=== PATIENT | male | born 1945 | race Caucasian/White ===

== ENCOUNTER → 2017-09-10 | Outpatient (CLI) | payer MEDICARE ==
[~2017-09-10] MED LIST: ASPI81EC PO; CEPH500 PO; CYCL10 PO; HYDR-86 PO; HYDR1TAB94 PO; LISHYD2025 PO; LISI20 PO; LISINOPRIL PO; TRAM50 PO; [UNRECOGNIZED DRUG - REMARK]
== END ==
LOC: PLD 10:32 → LAB SHORT 10:32
DX: D48.5 Neoplasm of uncertain behavior of skin (principal)
CPT/HCPCS: 88305

== ENCOUNTER → 2020-09-21 | Outpatient (CLI) | payer MEDICARE ==
[~2020-09-21] MED LIST changes: +TAMS.4ER PO
== END | disposition home or self-care (01) ==
LOC: LAB SHORT 11:33 → PLD 11:33
DX: L81.4 Other melanin hyperpigmentation (principal)
CPT/HCPCS: 88305

== ENCOUNTER 2025-03-28 09:03 | Observation (INO) | payer OTHER ==
[2025-03-28] VITALS (12 sets, daily range): BP systolic 110–150; BP diastolic 47–84
[~2025-03-28] VITALS: Ht 188 cm; Wt 92.6 kg
[2025-03-28 10:27] LABS: Source, Urine Clean Catch
[2025-03-28 10:30] LABS: Bilirubin, Urine Neg (Neg); Color, Urine Yellow (P-Yellow); Glucose Qualitative, Urine Neg (Neg); Ketones, Urine Neg (Neg); Leukocyte Esterase, Urine Neg (Neg); Protein, Urine 1+ (Neg); Specific Gravity, Urine 1.020 (1.003-1.022); Urobilinogen, Urine NORM (Normal)
[2025-03-28 10:39] LABS: Red Blood Cells, Urine 0-2 /hpf (0-2); White Blood Cells, Urine 0-2 /hpf (0-5)
[2025-03-28 10:40] LABS: BASOPHILS ABSOLUTE AUTO 0.05 K/mm3 (0.00-0.23); BASOPHILS PERCENT AUTO 0 % (0-2); EOSINOPHILS ABSOLUTE AUTO 0.01 K/mm3 (0.00-0.68); EOSINOPHILS PERCENT AUTO 0 % (0-6); Hematocrit 40.7 % (37.0-53.0); Hemoglobin 13.8 g/dL (13.5-17.5); IMMATURE GRAN ABSOLUTE AUTO 0.06 K/mm3 (0.00-0.10); IMMATURE GRAN PERCENT AUTO 0 % (0-1); LYMPHOCYTES ABSOLUTE AUTO 1.36 K/mm3 (0.84-5.20); LYMPHOCYTES PERCENT AUTO 8 % (21-46); MONOCYTES ABSOLUTE AUTO 1.39 K/mm3 (0.16-1.47); MONOCYTES PERCENT AUTO 8 % (4-13); Mean Corpuscular HGB Conc 33.9 g/dL (31.5-36.5); Mean Corpuscular Volume 87 fL (80-100); NEUTROPHILS ABSOLUTE AUTO 14.52 K/mm3 (1.96-9.15); NEUTROPHILS PERCENT AUTO 84 % (41-73); NRBC ABSOLUTE 0.00 K/mm3 (0.00-0.02); NRBC Auto 0.0 /100 WBC (0.0-0.2); Platelet Count 219 K/mm3 (150-400); RDW Coefficient Variation 13.3 % (11.7-14.2); RDW Standard Deviation 42.4 fL (35.1-46.3)
[2025-03-28 10:59] LABS: Alanine Aminotransfer (ALT/SGP 28.0 U/L (12-78); Albumin, Blood 3.9 g/dL (3.4-5.0); Albumin/Globulin Ratio 1.1 (0.8-1.8); Anion Gap 8.0 mmol/L (3-11); Aspartate Aminotrans (AST/SGOT 25.0 U/L (12-37); Bilirubin, Total 1.2 mg/dL (0.1-1.0); Blood Urea Nitrogen 34.0 mg/dL (8-24); CO2, Blood 28.0 mmol/L (21-32); Calcium, Blood 9.1 mg/dL (8.5-10.1); Chloride, Blood 103.0 mmol/L (98-108); Creatinine, Blood 1.14 mg/dL (0.60-1.20); Globulin, Blood 3.5 g/dL (2.2-4.0); Glucose, Blood 120.0 mg/dL (70-99); Potassium, Blood 3.8 mmol/L (3.5-5.5); Sodium, Blood 135.0 mmol/L (136-145); Total Protein, Blood 7.4 g/dL (6.4-8.2)
[2025-03-28] MEDS ORDERED: Ampicillin Sod/Sulbactam Sod 3 GM in NS 100 ML IV ONE (13:10)
[2025-03-28] MEDS ORDERED: NS 1,000 ML IV SCH (13:10)
[2025-03-28] MEDS ORDERED: Ondansetron HCl 2 MG / ML 2ML Vial IV PRN ×2 (14:05→14:15)
[2025-03-28] MEDS ORDERED: HYDROmorphone HCl/Pf 1MG SYR IV PRN ×2 (14:05→14:15)
[2025-03-28] MEDS ORDERED: Bupivacaine 0.5% W/EPI 1:200000 SDV 30 ML Vial ONE (14:07)
[2025-03-28] MEDS ORDERED: Rocuronium Bromide 10 MG/ML 5ML Injection IV ONE (14:55)
[2025-03-28] MEDS ORDERED: FentaNYL Citrate 50 MCG/ML 2 ML Injection ONE (14:58)
[2025-03-28] MEDS ORDERED: Ondansetron HCl 2 MG / ML 2ML Vial ONE (14:58)
[2025-03-28] MEDS ORDERED: Dexamethasone Sod Phos 10 MG/ML 1ML VIAL ONE (14:58)
[2025-03-28] MEDS ORDERED: Phenylephrine HCl 100 MCG/ML-NS 10MLSYR (1MG/10ML) ONE (15:07)
[2025-03-28] MEDS ORDERED: Sugammadex Sodium 200 MG/2ML SDV (100 MG/ML) ONE (15:15)
--- NOTE | 2025-03-28 15:15 | NUR ---
03/28/25 1515 Farhan Nice 3GRAMS IV STARTED IN PRE OP.
--- NOTE | 2025-03-28 16:37 | NUR ---
ASSUMED CARE OF PT @1620 AAXO4. VSS. MILD HTN. DENYING PAIN/NAUSEA/ LAP SITES X3 - CDI, ABD NONTENDER TO PALP. TOLERATING PO INTAKE CURRENTLY. ADMISSION BEING COMPLETED.
[2025-03-28] MEDS ORDERED: CHLO25B PO (16:38)
[2025-03-28] MEDS ORDERED: FINA5 PO (16:39)
--- NOTE | 2025-03-28 18:18 | NUR ---
SUMMARY SEE ASUMPTION NOTE. POST ASSUMPTION OF CARE- VSS. DENYING PAIN/NAUSEA. HAS STOOD AND AMBULATED TO BATHROOM W/O COMPLICATIONS. TOLERATING PO INTAKE. VOIDING. LAP SITES X3 CDI.
[2025-03-28] MEDS ORDERED: NS 250 ML IV PRN (19:35)
[2025-03-28] MEDS ORDERED: Ampicillin Sod/Sulbactam Sod 3 GM in NS 100 ML IV SCH (21:00)
[2025-03-29 05:37] VITALS: BP 114/59
--- NOTE | 2025-03-29 06:44 | NUR ---
SHIFT SUMMARY AT START OF SHIFT, PT SITTING UP IN BED WATCHING TV. PT DENIES PAIN THROUGHOUT SHIFT. HE HAS BEEN PLEASANT AND COOPERATIVE THROUGHOUT SHIFT. SLEPT THROUGH THE NIGHT, WAKING FOR MED PASSES AND REASSESSMENTS.
[2025-03-29 07:14] VITALS: BP 112/58
[2025-03-29] MEDS ORDERED: Enoxaparin 40 MG/0.4 ML SYR SC SCH ×2 (09:00)
[2025-03-29] MEDS ORDERED: Acetaminophen650 M1 PO (09:49)
[2025-03-29] MEDS ORDERED: AMOCLA875 PO (09:50)
[2025-03-29] MEDS ORDERED: OXYC5 PO (09:51)
--- NOTE | 2025-03-29 11:19 | NUR ---
PT DC'D @1050 ASSUMED CARE OF PT @0700. AXO4. VSS. LAPSITES X3 CDI. PT DENYING PAIN. PASSING GAS. TOELRATING PO INTAKE WELL. DENYING NAUSEA. VOIDING. NO ACUTE CHANGES OVER NIGHT. DC ORDERS PLACED BY DR VALENZUELA. INSTRUCTIONS READ TO PT WITH SPOUSE IN ROOM. DC PACKET GIVEN TO PT/SPOUSE. IV REMOVED. PT WALKED OUT OF ROOM @1050.
== END 2025-03-29 10:50 | disposition home or self-care (01) ==
LOC: ER 09:03 → SURS 09:04 → ER 13:50 → SURS 16:11
PROVIDERS: Student in an Organized Health Care Education/Training Program; ADMIT Surgery
PROC: 0DTJ4ZZ Resection of Appendix, Percutaneous Endoscopic Approach (ICD-10-PCS; principal; 2025-03-28 14:00)
DX: K35.32 Acute appendicitis with perforation, localized peritonitis, and gangrene, without abscess (principal); I10 Essential (primary) hypertension; N40.0 Benign prostatic hyperplasia without lower urinary tract symptoms; Z79.899 Other long term (current) drug therapy
CPT/HCPCS: 36415; 74177; 80053; 81001; 83605; 83690; 85025; 88304; 99285-25; A9270; J0295; J1100; J1650; J2371; J2405; J2704; J3010; J7050; J7120; Q9967